=== PATIENT | female | born 1980 | race Caucasian/White ===

== ENCOUNTER 2022-07-25 18:52 | Outpatient (CLI) | payer BC, SELFPAY ==
--- NOTE | 2022-07-25 19:00 | CRLHL7_ITS ---
For Patients: As a result of the Century Cures Act, medical imaging exams and procedure reports are released immediately into your electronic medical record. You may view this report before your referring provider. If you have questions, please contact your health care provider. BILATERAL SCREENING MAMMOGRAM WITH COMPUTER-AIDED DETECTION AND TOMOSYNTHESIS TECHNIQUE: CC and MLO views were obtained. These mammographic images have been obtained using full-field digital technique. These mammographic images were interpreted with the benefit of computer-aided detection. Breast Tomosynthesis was used in this interpretation. COMPARISON FILM: 07/10/21, 06/25/20, 06/03/19. FINDINGS: The breasts are heterogeneously dense, which may obscure small masses IMPRESSION: There is no radiographic evidence for malignancy. ASSESSMENT: BI-RADS Category 1: Negative RECOMMENDATION: Routine screening mammogram in 1 year. A lay language report of this examination will be provided to the patient. Ad Naranjo M.D. Diagnostic Radiologist [email or web address] JUSTIN/[email or web address] / be/Dictated by: Ad Naranjo MD @ 07/26/2022 12:16:00 PM (Electronically Signed)
== END 2022-07-25 18:53 | disposition home or self-care (01) ==
LOC: MAMMO 18:53
PROVIDERS: PCP Family Medicine; Visit Provider Obstetrics & Gynecology
DX: Z12.31 Encounter for screening mammogram for malignant neoplasm of breast (principal); R92.2 Inconclusive mammogram
CPT/HCPCS: 77063; 77067

== ENCOUNTER 2023-08-01 09:18 | Outpatient (CLI) | payer BC, SELFPAY ==
--- NOTE | 2023-08-01 09:45 | CRLHL7_ITS ---
For Patients: As a result of the Century Cures Act, medical imaging exams and procedure reports are released immediately into your electronic medical record. You may view this report before your referring provider. If you have questions, please contact your health care provider. BILATERAL SCREENING MAMMOGRAM WITH COMPUTER-AIDED DETECTION AND TOMOSYNTHESIS TECHNIQUE: CC and MLO views were obtained. These mammographic images have been obtained using full-field digital technique. These mammographic images were interpreted with the benefit of computer-aided detection. Breast Tomosynthesis was used in this interpretation. COMPARISON FILM: 07/25/22, 06/30/21, 06/25/20. FINDINGS: The breasts are extremely dense, which lowers the sensitivity of mammography IMPRESSION: There is no radiographic evidence for malignancy. ASSESSMENT: BI-RADS Category 1: Negative RECOMMENDATION: Routine screening mammogram in 1 year. A lay language report of this examination will be provided to the patient. Ad Naranjo M.D. Diagnostic Radiologist [email or web address] JENNIFER/Dictated by: Ad Naranjo MD @ 08/01/2023 10:12:00 AM (Electronically Signed)
== END 2023-08-01 09:19 | disposition home or self-care (01) ==
LOC: MAMMO 09:19
PROVIDERS: PCP Family Medicine; Visit Provider Family Medicine
DX: Z12.31 Encounter for screening mammogram for malignant neoplasm of breast (principal); R92.2 Inconclusive mammogram
CPT/HCPCS: 77063; 77067

== ENCOUNTER 2023-08-28 09:13 | Outpatient (CLI) | payer BC, SELFPAY ==
--- NOTE | 2023-08-28 11:06 | W.ANESCHARGE ---
Anesthesia Charges Start Date/Time Anesthesia Start Date: 08/28/23 Anesthesia Start Time: 10:16 Stop Date/Time Anesthesia Stop Date: 08/28/23 Anesthesia Stop Time: 11:03
--- NOTE | 2023-08-28 12:16 | W.ANESCHARGE ---
Anesthesia Charges Start Date/Time Anesthesia Start Date: 08/28/23 Anesthesia Start Time: 10:16 Stop Date/Time Anesthesia Stop Date: 08/28/23 Anesthesia Stop Time: 11:03
== END 2023-08-28 09:14 | disposition home or self-care (01) ==
LOC: OP CLINIC 09:14
PROVIDERS: PCP Family Medicine; Visit Provider Surgery
DX: Z12.11 Encounter for screening for malignant neoplasm of colon (principal); K63.5 Polyp of colon
CPT/HCPCS: 00811; 45385; 88305; J2704

== ENCOUNTER 2024-08-05 08:45 | Outpatient (CLI) | payer BC, SELFPAY ==
--- NOTE | 2024-08-05 09:15 | CRLHL7_ITS ---
For Patients: As a result of the Century Cures Act, medical imaging exams and procedure reports are released immediately into your electronic medical record. You may view this report before your referring provider. If you have questions, please contact your health care provider. BILATERAL SCREENING MAMMOGRAM WITH COMPUTER-AIDED DETECTION AND TOMOSYNTHESIS TECHNIQUE: CC and MLO views were obtained. These mammographic images have been obtained using full-field digital technique. These mammographic images were interpreted with the benefit of computer-aided detection. Breast Tomosynthesis was used in this interpretation. COMPARISON FILM: 08/01/23, 07/25/22, 06/30/21. FINDINGS: The breasts are extremely dense, which lowers the sensitivity of mammography IMPRESSION: There is no radiographic evidence for malignancy. ASSESSMENT: BI-RADS Category 1: Negative RECOMMENDATION: Routine screening mammogram in 1 year. A lay language report of this examination will be provided to the patient. Ad Naranjo M.D. Diagnostic Radiologist [email or web address] JUSTIN/[email or web address] Transcribed: 1:35 p.laura saunders/Dictated by: Ad Naranjo MD @ 08/05/2024 10:49:00 AM (Electronically Signed)
== END 2024-08-05 08:46 | disposition home or self-care (01) ==
LOC: MAMMO 08:45
PROVIDERS: PCP Family Medicine; Visit Provider Family Medicine
DX: Z12.31 Encounter for screening mammogram for malignant neoplasm of breast (principal); R92.343 Mammographic extreme density, bilateral breasts
CPT/HCPCS: 77063; 77067

== ENCOUNTER 2025-08-10 08:44 | Outpatient (CLI) | payer OTHER, SELFPAY | END 2025-08-10 08:45 | disposition home or self-care (01) | PROVIDERS: PCP Family Medicine; Visit Provider Obstetrics & Gynecology | DX: N92.0 Excessive and frequent menstruation with regular cycle (principal); Z13.6 Encounter for screening for cardiovascular disorders | CPT/HCPCS: 80061; 84443 ==

== ENCOUNTER 2025-08-21 14:41 | Outpatient (CLI) | payer OTHER, SELFPAY ==
--- NOTE | 2025-08-21 15:00 | CRLHL7_ITS ---
For Patients: As a result of the Century Cures Act, medical imaging exams and procedure reports are released immediately into your electronic medical record. You may view this report before your referring provider. If you have questions, please contact your health care provider. INDICATION: BILATERAL SCREENING MAMMOGRAM, ASYMPTOMATIC 45 Y/O FEMALE COMPARISON: 08/05/2024, 08/01/2023, 07/25/2022 TECHNIQUE: Digital mammogram in CC and MLO projections including computer-aided detection (CAD) and tomosynthesis. BREAST COMPOSITION: The breasts are extremely dense, which lowers the sensitivity of mammography. FINDINGS: No suspicious findings. ASSESSMENT: BI-RADS 1 Negative RECOMMENDATION: Annual screening mammogram. A lay language report of this examination will be provided to the patient. Dictated by: Ad Naranjo MD @ 08/24/2025 09:08:31 (Electronically Signed)
== END 2025-08-21 14:42 | disposition home or self-care (01) ==
LOC: MAMMO 14:41
PROVIDERS: PCP Family Medicine; Visit Provider Obstetrics & Gynecology
DX: Z12.31 Encounter for screening mammogram for malignant neoplasm of breast (principal); R92.343 Mammographic extreme density, bilateral breasts
CPT/HCPCS: 77063; 77067